=== PATIENT | male | born 1985 | race American Indian/Alaskan Native ===

== ENCOUNTER 2021-01-01 17:01 | Emergency (ER) | payer OTHER ==
[2021-01-01 18:10] VITALS: BP 116/70
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
== END 2021-01-01 19:20 | disposition home or self-care (01) ==
LOC: ED 17:01
DX: B35.4 Tinea corporis (principal); M79.18 Myalgia, other site; Z79.899 Other long term (current) drug therapy; V49.49XA Driver injured in collision with other motor vehicles in traffic accident, initial encounter; Y92.410 Unspecified street and highway as the place of occurrence of the external cause; Y93.89 Activity, other specified; Y99.8 Other external cause status
CPT/HCPCS: 99281